=== PATIENT | male | born 1980 | race African-American/Black ===

== ENCOUNTER 2024-09-27 20:39 | Emergency (ER) | payer MEDICAID ==
[~2024-09-27] VITALS: Ht 195.6 cm; Wt 95.0 kg
[2024-09-27 20:52] VITALS: O2SAT 97
[2024-09-27 21:09] VITALS: BP 199/113; PULSE 96; RESP 18; TEMP 37.1
== END 2024-09-28 00:47 | disposition left against medical advice (07) ==
LOC: ER 20:39
DX: R68.84 Jaw pain (principal); K08.89 Other specified disorders of teeth and supporting structures; Z53.21 Procedure and treatment not carried out due to patient leaving prior to being seen by health care provider